=== PATIENT | female | born 1945 | race Asian ===

== ENCOUNTER 2023-10-08 07:29 | Day surgery (SDC) | payer OTHER ==
[2023-10-02 15:53] VITALS: BMI 21.2
[2023-10-08 07:50] VITALS: RESP 18
[2023-10-08] MEDS ORDERED: PROPOFOL 120 ML ONE (09:28)
[2023-10-08 10:00] VITALS: TEMP 97
[2023-10-08 10:03] VITALS: BP 117/71; PULSE 92
== END 2023-10-08 10:37 | disposition home or self-care (01) ==
LOC: FASU-ENDO 07:29
PROVIDERS: ATTEND Internal Medicine Gastroenterology
PROC: 0DB98ZX Excision of Duodenum, Via Natural or Artificial Opening Endoscopic, Diagnostic (ICD-10-PCS; 2023-10-08)
PROC: 0DB68ZX Excision of Stomach, Via Natural or Artificial Opening Endoscopic, Diagnostic (ICD-10-PCS; 2023-10-08)
PROC: 0DBN8ZX Excision of Sigmoid Colon, Via Natural or Artificial Opening Endoscopic, Diagnostic (ICD-10-PCS; principal; 2023-10-08 08:52)
DX: Z12.11 Encounter for screening for malignant neoplasm of colon (principal); D12.5 Benign neoplasm of sigmoid colon; K57.30 Diverticulosis of large intestine without perforation or abscess without bleeding; K26.9 Duodenal ulcer, unspecified as acute or chronic, without hemorrhage or perforation; K29.50 Unspecified chronic gastritis without bleeding; K31.89 Other diseases of stomach and duodenum
CPT/HCPCS: 88305-TC; 88342-TC

== ENCOUNTER 2023-11-21 07:56 | Emergency (ER) | payer OTHER ==
[2023-11-21 08:08] VITALS: BP 138/94; PULSE 109; RESP 16; TEMP 97.8; BMI 21.2
== END 2023-11-21 09:26 | disposition home or self-care (01) ==
LOC: FER 07:56
DX: S00.03XA Contusion of scalp, initial encounter (principal); W01.198A Fall on same level from slipping, tripping and stumbling with subsequent striking against other object, initial encounter; Y92.000 Kitchen of unspecified non-institutional (private) residence as the place of occurrence of the external cause; Y93.01 Activity, walking, marching and hiking
CPT/HCPCS: 70450-TC; 99284-25